=== PATIENT | male | born 1940 | race Caucasian/White ===

== ENCOUNTER 2016-08-17 11:02 | Emergency (ER) | payer MEDICARE ==
[2016-08-17 11:30] VITALS: BP 135/78
--- NOTE | 2016-08-17 13:13 | UC ---
Hand/Wrist HPI - HPI Summary HPI Summary: PAIN AND REDNESS NEAR FINGER NAIL OF RIGHT THUMB. NO TRAUMA. NO FEVER. HISTORY OF GOUT. - History Of Current Complaint Chief Complaint: UCSkin Stated Complaint: THUMB PAIN Time Seen by Provider: 08/17/16 12:36 Hx Obtained From: Patient Onset/Duration: Sudden Onset Severity Initially: Mild Severity Currently: Mild Character Of Pain: Dull, Aching Aggravating Factor(s): Movement, Other - TOUCH Associated Signs And Symptoms: Positive: Swelling, Redness Related History: Dominant Hand Right - Allergies/Home Medications Allergies/Adverse Reactions: Allergies Allergy/AdvReac Type Severity Reaction Status Date / Time No Known Allergies Allergy Verified 08/31/14 13:57 Home Medications: Home Medications Aspirin [Aspirin 81 MG TAB] 1 tab PO DAILY 08/17/16 [History Confirmed 08/17/16] Atorvastatin* [Lipitor 40 MG*] 40 mg PO DAILY 08/17/16 [History Confirmed ] Brimonid/Timolol 0.2/0.5%(NF) [Combigan 0.2/0.5% (NF)] BID 08/17/16 [History] Calcium Carbonate-Vitamin D [Calcium 500 + D 500-125 mg-Unit] 1 tab PO BID 08/17 [History Confirmed 08/17/16] Citalopram Hydrobromide [Celexa] 1 tab PO DAILY 08/17/16 [History Confirmed ] Clonidine HCl (Adhd) [Clonidine HCl ER 0.1 MG] 1 tab PO BID PRN 08/17/16 [ History Confirmed 08/17/16] Difluprednate 0.05% (NF) [Durezol 0.05% (NF)] 08/17/16 [History] Felodipine (NF) [Plendil (NF)] 10 mg PO DAILY 08/17/16 [History Confirmed ] LORazepam TAB(*) [Ativan 0.5 MG TAB (*)] 1 tab PO PRN 08/17/16 [History] Latanoprost 0.005% OPTH (NF) [Xalatan 0.005% OPTH*] DAILY 08/17/16 [History] Losartan Potassium 1 tab PO DAILY 08/17/16 [History Confirmed 08/17/16] Meloxicam 1 tab PO 08/17/16 [History] Metformin HCl 1 tab PO BID 08/17/16 [History Confirmed 08/17/16] Metoprolol & Hydrochlorothiazi [Metoprolol Succinate ER/H 25-12.5 mg] 1 tab PO DAILY 08/17/16 [History Confirmed 08/17/16] Triamterene/HCTZ 37.5-25 MG* [Dyazide CAP*] 1 cap PO DAILY 08/17/16 [History Confirmed 08/17/16] PMH/Surg Hx/FS Hx/Imm Hx Previously Healthy: Yes - Surgical History Surgical History: Yes Surgery Procedure, Year, and Place: PROSTATE. PARTIAL KNEE. TONSILS - Family History Known Family History: Negative: Diabetes - Social History Occupation: Retired Lives: With Family Alcohol Use: Daily Alcohol Amount: 2 WINE 2 COCKTAILS Substance Use Type: None Smoking Status (MU): Former Smoker When Did the Patient Quit Smoking/Using Tobacco: 50 YEARS AGO Review of Systems Constitutional: Negative Skin: Other - REDNESS TENDERNESS RIGHT THUMB Eyes: Negative ENT: Negative Respiratory: Negative Cardiovascular: Negative Gastrointestinal: Negative Genitourinary: Negative Motor: Negative Neurovascular: Negative Musculoskeletal: Negative Neurological: Negative Psychological: Negative All Other Systems Reviewed And Are Negative: Yes Physical Exam Triage Information Reviewed: Yes Appearance: Well-Appearing, No Pain Distress, Well-Nourished Vital Signs: Initial Vital Signs Temp 97.5 F 08/17/16 11:25 Pulse 52 08/17/16 11:25 Resp 18 08/17/16 11:25 BP 135/78 08/17/16 11:25 Pulse Ox 99 08/17/16 11:25 Vital Signs Reviewed: Yes Eye Exam: Normal ENT Exam: Normal ENT: Positive: Normal ENT inspection, Hearing grossly normal, TMs normal Dental Exam: Normal Neck exam: Normal Neck: Positive: Supple, Nontender, No Lymphadenopathy Respiratory Exam: Normal Respiratory: Positive: Chest non-tender, Lungs clear, Normal breath sounds, No respiratory distress, No accessory muscle use Cardiovascular Exam: Normal Cardiovascular: Positive: RRR, No Murmur, Pulses Normal Abdominal Exam: Normal Musculoskeletal Exam: Normal Musculoskeletal: Positive: Strength Intact, ROM Intact Neurological Exam: Normal Psychological Exam: Normal Skin: Positive: Other - ERYTHEMA RIGHT THUMB AT CUTICLE Hand/Wrist Course/Dx - Differential Dx/Diagnosis Differential Diagnosis/HQI/PQRI: Cellulitis, Felon, Gout Provider Diagnoses: PARONYCHIA RIGHT THUMB Discharge - Discharge Plan Condition: Stable Disposition: HOME Prescriptions: Amoxicillin/Clavulanate TAB* [Augmentin TAB 875*] 875 mg PO BID #20 tab Patient Education Materials: Paronychia (ED) Referrals: [facility] [place] [facility] REFERRAL [Outside] No Primary Care Phys,NOPCP [Primary Care Provider] -
== END 2016-08-17 13:13 | disposition home or self-care (01) ==
LOC: UCEAST 11:02
DX: L03.011 Cellulitis of right finger (principal)
CPT/HCPCS: 99212; G0463